=== PATIENT | female | born 1960 | race Caucasian/White ===

== ENCOUNTER 2017-08-28 21:46 | Emergency (ER) | payer OTHER ==
[2017-08-28] MEDS ORDERED: Morphine 10 MG/ML VIAL ONE (22:07)
[2017-08-28] MEDS ORDERED: Ondansetron HCl/PF 4 MG/2 ML Vial ONE (22:08)
[2017-08-28] MEDS ORDERED: diphenhydrAMINE 50 MG/ML VIAL ONE (22:08)
[2017-08-28] MEDS ORDERED: Ketorolac Tromethamine 30 MG/ML VIAL ONE (22:08)
[2017-08-28 22:30] LABS: #Basophils 0.1 thou/uL (0.0-0.2); #Lymphocytes 1.9 thou/uL (1.20-3.40); #Monocytes 0.8 thou/uL (0.11-0.59); #Neutrophils 6.6 thou/uL (1.40-6.50); %Basophils 0.7 % (0.0-1.0); %Eosinophils 0.5 % (0.0-10.0); %Lymphocytes 20.7 % (21.0-51.0); %Neutrophils 70.1 % (42.0-75.0); ALT (SGPT) 19 U/L (8-55); AST (SGOT) 20 U/L (5-34); Albumin 4.4 g/dL (3.5-5.0); Alkaline Phosphatase 81 U/L (40-150); Anion Gap 17 mmol/L (10-20); BUN (Urea Nitrogen) 18 mg/dL (9.8-20.1); Bilirubin, Total 0.4 mg/dL (0.2-1.2); Calc. Creatinine Clearance 0 mL/min (70-130); Calcium 9.7 mg/dL (7.8-10.44); Carbon Dioxide 26 mmol/L (22-29); Chloride 103 mmol/L (98-107); Estimated GFR-MDRD 74; Globulin 2.5 g/dL (2.4-3.5); Glucose 172 mg/dL (70-105); Hemoglobin 13.5 g/dL (12.0-16.0); Lipase 37 U/L (8-78); Mean Corpuscular HGB CONC 36.5 g/dL (32.0-36.0); Mean Corpuscular Hemoglobin 32.2 pg (27.0-31.0); Mean Corpuscular Volume 88.3 fL (78.0-98.0); Mean Platelet Volume 9.4 fL (7.4-10.4); Platelet Count 193 thou/uL (130-400); Potassium 3.8 mmol/L (3.5-5.1); Protein, Total 6.9 g/dL (6.0-8.3); RBC Distribution Width 11.5 % (11.5-14.5); Red Blood Cell (RBC) Count 4.21 mill/uL (4.20-5.40); Sodium 142 mmol/L (136-145); White Blood Cell (WBC) Count 9.4 thou/uL (4.8-10.8)
[2017-08-28 22:36] LABS: Bilirubin Negative (Negative); Blood, Urine Trace (Negative); Clarity Hazy (Clear); Glucose, Urine (Dipstick) Negative (Negative); Leukocyte Moderate (Negative); Nitrite Negative (Negative); Protein, Urine (Dipstick) Negative (Neg-Trace); Urobilinogen 0.2 mg/dL (0.2-1.0); pH, Urine 6.5 (5.0-9.0)
[2017-08-28 22:37] LABS: Pregnancy Test - Urine (BHCG) Negative (Negative); Pregu Control Background? CLEAR/WHITE (CLR/WHITE); Pregu Control Bar Appear? YES (CONTROL BAR)
[2017-08-28 22:43] LABS: Bacteria/HPF Rare-Few HPF (None Seen); Crystals/HPF 2+ AMORPH URATES HPF (Negative); Hyaline Casts/LPF 0-3 HYALINE CAST LPF (0-3 Hyaline); Other Microscopic Description 1+ MUCUS; RBC/HPF 0-3 HPF (0-3); Squamous Epithelial 0-3 HPF (0-3); Transitional Epithelial 0-3 HPF (0-3)
[2017-08-28] MEDS ORDERED: Morphine 4 MG/ML Carpuject ONE (22:49)
[2017-08-28] MEDS ORDERED: Fentanyl 100 MCG/2 ML VIAL ONE (23:47)
--- NOTE | 2017-08-29 09:07 | CT ---
PRELIMINARY REPORT/[facility]/EMERGENTY AFTER-HOURS PROCEDURE CT Abdomen and Pelvis Without Intravenous Contrast CLINICAL HISTORY: 57 years old, female; Pain; Abdominal pain; Flank; Left; Patient HX: PT presents to the er for flank pain; Crushing pain, deep pain, exhausting pain, to the left lower quadrant, to the left flank, onset of pain 08/28/2017 22: 20 TECHNIQUE: Axial computed tomography images of the abdomen and pelvis without intravenous contrast. All CT scans at this facility use at least one of these dose optimization techniques: automated exposure control; mA and/or kV adjustment per patient size (includes targeted exams where dose is matched to clinical indication); or iterative reconstruction. Coronal and sagittal reformatted images were created and reviewed. COMPARISON: No relevant prior studies available. FINDINGS: Lower thorax: No acute findings. ABDOMEN: Liver: Normal. No mass. Gallbladder and bile ducts: Normal. No calcified stones. No ductal dilation. Pancreas: Normal. No ductal dilation. Spleen: Normal. No splenomegaly. Adrenals: Normal. No mass. Kidneys and ureters: No urolithiasis or obstructive uropathy. Stomach and bowel: There is a high-grade mid small bowel obstruction secondary to an inferior rectus sheath hernia containing a loop of fluid-filled dilated small bowel with transition point as the hernia reenters the peritoneal cavity proper, potentially incarcerated. No associated inflammation or bowel wall thickening. No bowel wall thickening. Appendix: Normal appendix. PELVIS: Bladder: Unremarkable as visualized. Reproductive: IUD in place, appears adequately positioned. Ovaries are unremarkable. ABDOMEN and PELVIS: Intraperitoneal space: Normal. No free air. No significant fluid collection. Bones/joints: No acute fracture. No dislocation. Soft tissues: Unremarkable. Vasculature: Normal. No abdominal aortic aneurysm. Lymph nodes: Normal. No enlarged lymph nodes. IMPRESSION: 1. High-grade mid small bowel obstruction secondary to an inferior rectus sheath hernia containing a loop of fluid-filled dilated small bowel which may be incarcerated. 2. IUD in place. Recommend gynecology referral/followup given patient's age. Case reviewed with Dr. Barron at time of interpretation. Thank you for allowing us to participate in the care of your patient. Dictated and Authenticated by: Anshu Noonan MD 08/28/2017 11:45 PM Central Time ([place] & [place]) FINAL REPORT CT ABDOMEN AND PELVIS WITHOUT CONTRAST: DATE: 08/28/17. FINDINGS: Spiral CT of the abdomen and pelvis was done without oral or IV contrast by request. Axial slices we re acquired, then coronal and sagittal reconstructions were done. The lung bases are clear, except for some minor scarring or atelectasis in the left base. The liver, spleen, pancreas, adrenal glands, kidneys, gallbladder, and abdominal aorta were unremarkable in [place] ear[place]. The major finding on the study is herniation of mid-small bowel into the left rectus sheath through a very narrow defect which is causing moderate small bowel obstruction. Maximum size of dilated bowel was about 2.8 cm wide. No free air or free fluid was noted. CT of the pelvis was remarkable for an IUD in place. No inflammatory changes or free fluid was appre ciated. IMPRESSION: 1. Herniation of mid small-bowel into the left rectus sheath. The loop appears incarcerated and res ults in moderate mid-small bowel obstruction. 2. Intrauterine device present in the uterus. Report in agreement with preliminary reading by [facility]. POS: HOME
== END 2017-08-29 00:20 | disposition short-term general hospital (02) ==
LOC: BURERS 21:46
DX: K46.0 Unspecified abdominal hernia with obstruction, without gangrene (principal); E03.9 Hypothyroidism, unspecified; Z79.899 Other long term (current) drug therapy
CPT/HCPCS: 74176; 80053; 81003; 81015; 81025; 83690; 85025; 87077; 87086; 94760; 96374; 96375; J1200; J1885; J2270; J2405; J3010